=== PATIENT | male | born 1950 | race Caucasian/White ===

== ENCOUNTER 2023-06-12 03:04 | Inpatient (IN) | payer MEDICARE ==
[~2023-06-12] VITALS: Ht 182.9 cm; Wt 81.6 kg
[~2023-06-12 03:04] MED LIST: ASPI-1749 PO; ATOR10TA51 PO; CARV3.122 PO; GLIP5TAB22 PO; LISI2.5T12 PO; PHEN50CT5 PO
[2023-06-12 03:08] VITALS: BP 88/51; PULSE 79; RESP 16; TEMP 98.1
[2023-06-12] MEDS ORDERED: NACL 0.9% 1,000 ML IV ONE ×2 (03:30→04:45)
[2023-06-12 03:37] LABS: BASOPHILS % (AUTO) 0.6 % (0.0-2.0); EOSINOPHILS # (AUTO) 0.1 K/uL (0-0.4); EOSINOPHILS % (AUTO) 1.3 % (0.0-4.0); HEMATOCRIT 29.7 % (36-52); HEMOGLOBIN 10.1 g/dL (12.0-18.0); LYMPHOCYTES # (AUTO) 1.4 K/uL (2.0-11.5); LYMPHOCYTES % (AUTO) 18.6 % (20.5-51.1); MEAN CORPUSCULAR HEMOGLOBIN 34 pg (27-31); MEAN CORPUSCULAR HGB CONC 34 g/dL (33-37); MEAN CORPUSCULAR VOLUME 100.8 fL (80-94); MONOCYTES # (AUTO) 0.7 K/uL (0.8-1.0); MONOCYTES % (AUTO) 9.7 % (1.7-9.3); NEUTROPHILS # (AUTO) 5.2 K/uL (1.8-7.7); NEUTROPHILS % (AUTO) 69.8 % (42.2-75.2); PLATELET COUNT (AUTO) 204 K/uL (140-450); RED BLOOD CELL COUNT(AUTO) 2.94 MIL/uL (4.20-6.10); RED CELL DISTRIBUTION WIDTH 14.8 % (11.6-13.7); WHITE BLOOD COUNT (AUTO) 7.5 K/uL (4.8-10.8)
[2023-06-12] MEDS ORDERED: VANCOMYCIN 1,000 MG in DEXTROSE 5% 250 ML IV ONE (03:45)
[2023-06-12] MEDS ORDERED: DEXT 5% / NACL 0.45% 1,000 ML IV ONE (03:45)
[2023-06-12] MEDS ORDERED: PIPERACILLIN/TAZOBACTAM 3.375 GM in DEXTROSE 5% 50 ML IV ONE (03:45)
[2023-06-12 03:55] LABS: LACTIC ACID 1.1 mmol/L (0.4-2.0)
[2023-06-12] MEDS ORDERED: VANCOMYCIN 1,000 MG VIAL ONE (04:01)
[2023-06-12] MEDS ORDERED: PIPERACILLIN/TAZOBACTAM 3.375 GM VIAL IV ONE (04:02)
[2023-06-12 04:06] LABS: ALANINE AMINOTRANSFERASE 17 U/L (12-78); ALBUMIN 2.2 g/dL (3.4-5.0); ALKALINE PHOSPHATASE 82 U/L (50-136); ANION GAP 10.6 (8-16); ASPARTATE AMINOTRANSFERASE 21 U/L (15-37); CALCIUM 8.2 mg/dL (8.5-10.1); CARBON DIOXIDE 31.6 mmol/L (21-32); CHLORIDE 101 mmol/L (98-107); CREATININE 1.4 mg/dL (0.6-1.3); GLUCOSE 70 mg/dL (74-106); POTASSIUM 3.2 mmol/L (3.5-5.1); SODIUM SERUM 140 mmol/L (136-145); TOTAL BILIRUBIN 0.1 mg/dL (0.0-1.0); TOTAL PROTEIN, SERUM 6.6 g/dL (6.4-8.2); UREA NITROGEN, BLOOD 20 mg/dL (7-18)
[2023-06-12] MEDS ORDERED: NACL 0.9% 400 ML IV ONE (04:45)
[2023-06-12] MEDS ORDERED: DEXTROSE 50% 50 ML SYR IVP ONE ×5 (05:22→17:25)
[2023-06-12 05:43] LABS: APPEARANCE,URINE CLEAR (CLEAR); BILIRUBIN,URINE NEGATIVE (NEGATIVE); BLOOD, URINE NEGATIVE (NEGATIVE); COLOR,URINE YELLOW (YELLOW); LEUKOCYTE ESTERASE ,URINE 1+ (NEGATIVE); NITRITE, URINE POSITIVE (NEGATIVE); PROTEIN,URINE NEGATIVE (NEGATIVE); UGLUCOSE NEGATIVE (NEGATIVE); UROBILINOGEN,URINE 0.2 EU/dL (0.2 - 1)
[2023-06-12 05:47] LABS: BACTERIA,URINE >30 (MANY) /HPF (None Seen); RBC,URINE 0-5 /HPF (0-5); SQUAMOUS EPITHELIAL CELL,UR 0-3 (FEW) /LPF (0-3 (FEW)); WBC,URINE TOO MANY TO COUNT /HPF (0-5)
[2023-06-12 05:48] LABS: MUCUS,URINE 1+ /LPF (None Seen)
[2023-06-12 06:34] LABS: FLU A ANTIGEN negative (NEGATIVE); FLU B ANTIGEN NEGATIVE (NEGATIVE)
[2023-06-12] MEDS ORDERED: DEXTROSE 10% 500 ML IV SCH (07:50)
[2023-06-12] MEDS ORDERED: DEXTROSE 10% 1,000 ML IV ONE (08:19)
[2023-06-12] MEDS ORDERED: DEXTROSE 10% 1,000 ML IV SCH (08:20)
[2023-06-12] MEDS ORDERED: VANCOMYCIN PER PHARMACY MC PRN (09:40)
[2023-06-12] MEDS ORDERED: KCL 20 MEQ IN 100 mL PREMIX 200 ML IV PRN (09:40)
[2023-06-12] MEDS ORDERED: MORPHINE SULFATE 4 MG/ML SYR IVP PRN (09:40)
[2023-06-12] MEDS ORDERED: ACETAMINOPHEN 325 MG TAB PO PRN (09:40)
[2023-06-12] MEDS ORDERED: ONDANSETRON 4 MG/2 ML VIAL IVP PRN (09:40)
[2023-06-12] MEDS ORDERED: HYDROcodone/APAP 5/325 MG 1 TAB TAB PO PRN (09:40)
[2023-06-12] MEDS ORDERED: POTASSIUM CHLORIDE 10 MEQ TABER PO PRN (09:40)
[2023-06-12] MEDS ORDERED: MAG SULF 2000 MG/WATER PREMIX 50 ML IV PRN (09:40)
[2023-06-12] MEDS: DEXT 5% /NACL 0.9% 1,000 ML IV SCH (10:35)
[2023-06-12] MEDS ORDERED: BLOOD GLUCOSE MONITORING 1 DEV DEV FS SCH (12:00)
[2023-06-12 13:00] VITALS: PULSE 76; RESP 18; O2SAT 95
[2023-06-12 16:00] VITALS: BP 105/60; PULSE 105; PULSE 79; RESP 18; TEMP 98.9; O2SAT 95
[2023-06-12 20:00] VITALS: BP 121/63; PULSE 74; RESP 18; TEMP 98.3; O2SAT 74
[2023-06-12 21:01] VITALS: PULSE 76
[2023-06-12] MEDS: BLOOD GLUCOSE MONITORING 1 DEV DEV FS SCH (21:27)
[2023-06-13] VITALS (8 sets, daily range): BP systolic 95–125; BP diastolic 45–75; PULSE 67–89; RESP 16–19; TEMP 97.4–98.6; O2SAT 85–98
[2023-06-13] MEDS: DEXT 5% /NACL 0.9% 1,000 ML IV SCH ×2 (04:20→10:40)
[2023-06-13 06:08] LABS: BASOPHILS # (AUTO) 0.1 K/uL (0.00-0.22); BASOPHILS % (AUTO) 0.9 % (0.0-2.0); EOSINOPHILS # (AUTO) 0.3 K/uL (0-0.4); HEMATOCRIT 29.2 % (36-52); HEMOGLOBIN 9.9 g/dL (12.0-18.0); LYMPHOCYTES # (AUTO) 1.7 K/uL (2.0-11.5); MEAN CORPUSCULAR HEMOGLOBIN 34 pg (27-31); MEAN CORPUSCULAR HGB CONC 34 g/dL (33-37); MEAN CORPUSCULAR VOLUME 101.6 fL (80-94); MONOCYTES # (AUTO) 0.9 K/uL (0.8-1.0); MONOCYTES % (AUTO) 11.4 % (1.7-9.3); NEUTROPHILS # (AUTO) 4.8 K/uL (1.8-7.7); NEUTROPHILS % (AUTO) 61.7 % (42.2-75.2); PLATELET COUNT (AUTO) 184 K/uL (140-450); RED BLOOD CELL COUNT(AUTO) 2.87 MIL/uL (4.20-6.10); RED CELL DISTRIBUTION WIDTH 14.8 % (11.6-13.7); WHITE BLOOD COUNT (AUTO) 7.7 K/uL (4.8-10.8)
[2023-06-13 06:21] LABS: ANION GAP 9.3 (8-16); CALCIUM 7.9 mg/dL (8.5-10.1); CHLORIDE 107 mmol/L (98-107); CREATININE 1.3 mg/dL (0.6-1.3); GLUCOSE 103 mg/dL (74-106); POTASSIUM 4.3 mmol/L (3.5-5.1); SODIUM SERUM 142 mmol/L (136-145); UREA NITROGEN, BLOOD 17 mg/dL (7-18)
[2023-06-13] MEDS: BLOOD GLUCOSE MONITORING 1 DEV DEV FS SCH ×4 (06:43→22:00)
[2023-06-13] MEDS: DOCUSATE SODIUM 100 MG GELCAP PO SCH (09:40)
[2023-06-13] MEDS: VANCOMYCIN 1.25GM PREMIX 250 ML IV SCH (09:41)
[2023-06-13] MEDS: DEXTROSE 50% 50 ML SYR IVP PRN ×2 (13:03→17:09)
[2023-06-14] VITALS: BP 105/62; PULSE 80; PULSE 82; RESP 16; TEMP 98.4; O2SAT 94
[2023-06-14] MEDS: VANCOMYCIN 1.25GM PREMIX 250 ML IV SCH ×2 (03:45→20:30)
[2023-06-14 04:00] VITALS: BP 101/55; PULSE 83; PULSE 84; RESP 18; TEMP 98.6; O2SAT 95
[2023-06-14 07:13] LABS: BASOPHILS % (AUTO) 0.5 % (0.0-2.0); EOSINOPHILS # (AUTO) 0.3 K/uL (0-0.4); EOSINOPHILS % (AUTO) 4.1 % (0.0-4.0); HEMATOCRIT 27.9 % (36-52); HEMOGLOBIN 9.4 g/dL (12.0-18.0); LYMPHOCYTES # (AUTO) 1.7 K/uL (2.0-11.5); LYMPHOCYTES % (AUTO) 19.8 % (20.5-51.1); MEAN CORPUSCULAR HEMOGLOBIN 34 pg (27-31); MEAN CORPUSCULAR HGB CONC 34 g/dL (33-37); MEAN CORPUSCULAR VOLUME 101.7 fL (80-94); MONOCYTES # (AUTO) 1.1 K/uL (0.8-1.0); MONOCYTES % (AUTO) 13.2 % (1.7-9.3); NEUTROPHILS # (AUTO) 5.2 K/uL (1.8-7.7); NEUTROPHILS % (AUTO) 62.4 % (42.2-75.2); PLATELET COUNT (AUTO) 182 K/uL (140-450); RED BLOOD CELL COUNT(AUTO) 2.74 MIL/uL (4.20-6.10); RED CELL DISTRIBUTION WIDTH 14.8 % (11.6-13.7); WHITE BLOOD COUNT (AUTO) 8.4 K/uL (4.8-10.8)
[2023-06-14] MEDS: BLOOD GLUCOSE MONITORING 1 DEV DEV FS SCH ×4 (07:17→20:37)
[2023-06-14 07:47] LABS: ANION GAP 10.2 (8-16); CARBON DIOXIDE 28.3 mmol/L (21-32); CHLORIDE 105 mmol/L (98-107); CREATININE 1.1 mg/dL (0.6-1.3); GLUCOSE 122 mg/dL (74-106); POTASSIUM 4.5 mmol/L (3.5-5.1); SODIUM SERUM 139 mmol/L (136-145); UREA NITROGEN, BLOOD 15 mg/dL (7-18)
[2023-06-14 08:00] VITALS: BP 116/73; PULSE 85; PULSE 96; RESP 18; TEMP 98; O2SAT 95; O2SAT 97
[2023-06-14] MEDS: DOCUSATE SODIUM 100 MG GELCAP PO SCH (10:02)
[2023-06-14 12:00] VITALS: BP 114/69; PULSE 96; RESP 17; TEMP 97.9; O2SAT 99
[2023-06-14 16:00] VITALS: BP 115/79; PULSE 120; RESP 17; TEMP 98.1; O2SAT 98
[2023-06-14 20:00] VITALS: BP 116/73; PULSE 75; PULSE 89; RESP 18; TEMP 97.7; O2SAT 96; O2SAT 97
[2023-06-15] VITALS (7 sets, daily range): BP systolic 109–138; BP diastolic 59–83; PULSE 70–88; RESP 17–18; TEMP 97.6–98.9; O2SAT 94–98
[2023-06-15 06:28] LABS: BASOPHILS # (AUTO) 0.1 K/uL (0.00-0.22); BASOPHILS % (AUTO) 0.9 % (0.0-2.0); EOSINOPHILS # (AUTO) 0.4 K/uL (0-0.4); EOSINOPHILS % (AUTO) 5.7 % (0.0-4.0); HEMATOCRIT 27.6 % (36-52); HEMOGLOBIN 9.5 g/dL (12.0-18.0); LYMPHOCYTES # (AUTO) 2.4 K/uL (2.0-11.5); LYMPHOCYTES % (AUTO) 31.6 % (20.5-51.1); MEAN CORPUSCULAR HEMOGLOBIN 35 pg (27-31); MEAN CORPUSCULAR HGB CONC 35 g/dL (33-37); MEAN CORPUSCULAR VOLUME 100.8 fL (80-94); NEUTROPHILS # (AUTO) 3.6 K/uL (1.8-7.7); NEUTROPHILS % (AUTO) 48.8 % (42.2-75.2); PLATELET COUNT (AUTO) 187 K/uL (140-450); RED BLOOD CELL COUNT(AUTO) 2.74 MIL/uL (4.20-6.10); RED CELL DISTRIBUTION WIDTH 14.8 % (11.6-13.7); WHITE BLOOD COUNT (AUTO) 7.4 K/uL (4.8-10.8)
[2023-06-15] MEDS: BLOOD GLUCOSE MONITORING 1 DEV DEV FS SCH ×4 (06:30→20:47)
[2023-06-15 06:50] LABS: ANION GAP 12.1 (8-16); CALCIUM 8.4 mg/dL (8.5-10.1); CARBON DIOXIDE 27.7 mmol/L (21-32); CHLORIDE 105 mmol/L (98-107); GLUCOSE 167 mg/dL (74-106); POTASSIUM 3.8 mmol/L (3.5-5.1); SODIUM SERUM 141 mmol/L (136-145); UREA NITROGEN, BLOOD 15 mg/dL (7-18)
[2023-06-15] MEDS: DOCUSATE SODIUM 100 MG GELCAP PO SCH (08:08)
[2023-06-15] MEDS: VANCOMYCIN 1.25GM PREMIX 250 ML IV SCH (15:28)
[2023-06-16] VITALS (7 sets, daily range): BP systolic 117–138; BP diastolic 61–89; PULSE 75–88; RESP 18; TEMP 97.5–98.6; O2SAT 95–96
[2023-06-16] MEDS: BLOOD GLUCOSE MONITORING 1 DEV DEV FS SCH ×4 (06:31→20:16)
[2023-06-16 06:36] LABS: BASOPHILS % (AUTO) 0.6 % (0.0-2.0); EOSINOPHILS # (AUTO) 0.5 K/uL (0-0.4); EOSINOPHILS % (AUTO) 6.9 % (0.0-4.0); HEMATOCRIT 30.5 % (36-52); HEMOGLOBIN 10.5 g/dL (12.0-18.0); LYMPHOCYTES # (AUTO) 1.7 K/uL (2.0-11.5); LYMPHOCYTES % (AUTO) 24.3 % (20.5-51.1); MEAN CORPUSCULAR HEMOGLOBIN 34 pg (27-31); MEAN CORPUSCULAR HGB CONC 34 g/dL (33-37); MEAN CORPUSCULAR VOLUME 100.4 fL (80-94); MONOCYTES # (AUTO) 0.9 K/uL (0.8-1.0); MONOCYTES % (AUTO) 12.6 % (1.7-9.3); NEUTROPHILS % (AUTO) 55.6 % (42.2-75.2); PLATELET COUNT (AUTO) 219 K/uL (140-450); RED BLOOD CELL COUNT(AUTO) 3.04 MIL/uL (4.20-6.10); RED CELL DISTRIBUTION WIDTH 14.5 % (11.6-13.7); WHITE BLOOD COUNT (AUTO) 7.1 K/uL (4.8-10.8)
[2023-06-16 06:50] LABS: ANION GAP 11.7 (8-16); CALCIUM 8.7 mg/dL (8.5-10.1); CHLORIDE 106 mmol/L (98-107); CREATININE 0.9 mg/dL (0.6-1.3); GLUCOSE 176 mg/dL (74-106); POTASSIUM 3.7 mmol/L (3.5-5.1); SODIUM SERUM 142 mmol/L (136-145); UREA NITROGEN, BLOOD 13 mg/dL (7-18)
[2023-06-16] MEDS: DOCUSATE SODIUM 100 MG GELCAP PO SCH (09:00)
[2023-06-16] MEDS: VANCOMYCIN 1.25GM PREMIX 250 ML IV SCH (09:01)
[2023-06-17] VITALS: BP 133/74; PULSE 84; PULSE 90; RESP 20; TEMP 97.6; O2SAT 94
[2023-06-17] MEDS: VANCOMYCIN 1.25GM PREMIX 250 ML IV SCH ×2 (03:54→21:00)
[2023-06-17 04:00] VITALS: BP 131/75; PULSE 79; PULSE 84; RESP 20; TEMP 97.4; O2SAT 94
[2023-06-17 07:17] LABS: BASOPHILS # (AUTO) 0.1 K/uL (0.00-0.22); BASOPHILS % (AUTO) 0.9 % (0.0-2.0); EOSINOPHILS # (AUTO) 0.4 K/uL (0-0.4); HEMATOCRIT 28.8 % (36-52); HEMOGLOBIN 9.9 g/dL (12.0-18.0); LYMPHOCYTES % (AUTO) 26.4 % (20.5-51.1); MEAN CORPUSCULAR HEMOGLOBIN 35 pg (27-31); MEAN CORPUSCULAR HGB CONC 34 g/dL (33-37); MONOCYTES # (AUTO) 0.9 K/uL (0.8-1.0); MONOCYTES % (AUTO) 12.3 % (1.7-9.3); NEUTROPHILS % (AUTO) 54.4 % (42.2-75.2); PLATELET COUNT (AUTO) 241 K/uL (140-450); RED BLOOD CELL COUNT(AUTO) 2.85 MIL/uL (4.20-6.10); RED CELL DISTRIBUTION WIDTH 14.1 % (11.6-13.7); WHITE BLOOD COUNT (AUTO) 7.4 K/uL (4.8-10.8)
[2023-06-17 07:36] LABS: ANION GAP 10.9 (8-16); CALCIUM 8.8 mg/dL (8.5-10.1); CARBON DIOXIDE 28.9 mmol/L (21-32); CHLORIDE 106 mmol/L (98-107); CREATININE 1.1 mg/dL (0.6-1.3); GLUCOSE 174 mg/dL (74-106); POTASSIUM 3.8 mmol/L (3.5-5.1); SODIUM SERUM 142 mmol/L (136-145); UREA NITROGEN, BLOOD 16 mg/dL (7-18)
[2023-06-17] MEDS: BLOOD GLUCOSE MONITORING 1 DEV DEV FS SCH ×4 (07:40→21:15)
[2023-06-17 08:00] VITALS: BP 134/73; PULSE 108; PULSE 89; RESP 18; TEMP 96.7; O2SAT 100; O2SAT 95
[2023-06-17] MEDS: DOCUSATE SODIUM 100 MG GELCAP PO SCH (09:31)
[2023-06-17 12:00] VITALS: BP 134/77; PULSE 104; PULSE 89; RESP 18; TEMP 97.2; O2SAT 94
[2023-06-17 16:00] VITALS: BP 131/90; PULSE 109; PULSE 112; RESP 18; TEMP 98.3; O2SAT 94
[2023-06-17 20:00] VITALS: BP 116/71; PULSE 99; RESP 18; RESP 20; TEMP 98.6; O2SAT 93; O2SAT 98
[2023-06-18] VITALS: BP 117/68; PULSE 87; PULSE 92; RESP 30; TEMP 98.2; O2SAT 95
[2023-06-18] MEDS: VANCOMYCIN 1.25GM PREMIX 250 ML IV SCH (00:07)
[2023-06-18 04:00] VITALS: BP 109/67; PULSE 79; PULSE 81; RESP 25; TEMP 98.1; O2SAT 94
[2023-06-18] MEDS: BLOOD GLUCOSE MONITORING 1 DEV DEV FS SCH ×3 (06:55→16:30)
[2023-06-18 08:00] VITALS: BP 122/76; PULSE 76; PULSE 79; RESP 18; TEMP 97.9; O2SAT 93; O2SAT 96
[2023-06-18] MEDS: DOCUSATE SODIUM 100 MG GELCAP PO SCH (09:00)
[2023-06-18 12:00] VITALS: BP 127/75; PULSE 74; PULSE 96; RESP 18; TEMP 97.9; O2SAT 95
[2023-06-18 18:09] VITALS: BP 125/79; PULSE 74; RESP 19; TEMP 97.9
== END 2023-06-18 19:51 | DRG 871 ==
LOC: MED 03:04 → MTU 09:39
PROVIDERS: ADMIT Student in an Organized Health Care Education/Training Program; ATTEND Student in an Organized Health Care Education/Training Program
DX: A41.9 Sepsis, unspecified organism (principal); G93.41 Metabolic encephalopathy; N17.0 Acute kidney failure with tubular necrosis; R65.21 Severe sepsis with septic shock; N39.0 Urinary tract infection, site not specified; D84.9 Immunodeficiency, unspecified; E11.649 Type 2 diabetes mellitus with hypoglycemia without coma; E86.1 Hypovolemia; Z20.822 Contact with and (suspected) exposure to COVID-19; I10 Essential (primary) hypertension; Z88.2 Allergy status to sulfonamides; T38.3X5A Adverse effect of insulin and oral hypoglycemic [antidiabetic] drugs, initial encounter; Y92.89 Other specified places as the place of occurrence of the external cause
CPT/HCPCS: 36415; 70450; 71045; 80048; 80053; 80202; 81001; 82947; 82948; 83605; 84484; 85025; 87040; 87086; 93005; 96365; 96367; 97116; 97163-GP; 99291; J0696; J1644; J2543; J3370; J3372; J7060; Q0092